=== PATIENT | male | born 2000 | race Caucasian/White ===

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

== ENCOUNTER 2022-02-04 23:08 | Day surgery (SDC) | payer MEDICAID, SELFPAY ==
[2022-02-04 23:12] VITALS: BP 145/84; PULSE 82; RESP 16; TEMP 36.8; O2SAT 98; BMI 22.4
--- NOTE | 2022-02-05 00:07 | XRR_ITS ---
PROCEDURE INFORMATION: Exam: XR Abdomen Exam date and time: 02/05/2022 12:13 AM Age: 21 years old Clinical indication: Patient HX: Rectal foreign body TECHNIQUE: Imaging protocol: Radiologic exam of the abdomen. Views: Frontal supine view of the abdomen. 1 View. COMPARISON: CT abdomen pelvis w con* [id number] 10/31/2020 1:51 AM FINDINGS: Gastrointestinal tract: Nondilated bowel. Intraperitoneal space: Negative for free intraperitoneal air. Bones/joints: Unremarkable. Soft tissues: Suspect a cylindrical foreign body structure in the midline of the inferior pelvis unknown etiology otherwise. Other findings: Large fecal volume. XR/XR KUB [id number] IMPRESSION: Vague cylindrical radiopaque foreign body structure in profile with the distal rectum.
--- NOTE | 2022-02-05 00:32 | W.ED.SKABFB ---
HPI - Skin/Abscess/Foreign Bdy General: Chief complaint: Skin/Abscess/Foreign Body Stated complaint: FOB Time Seen by Provider: 02/05/22 00:15 History of Present Illness: Mr. Carter is a 21-year-old male without significant past medical history presents to the emergency department due to rectal foreign body. He reports, just prior to arrival, sitting down and sitting on a pen. He immediately had mild discomfort and knew that the pen had gone inside his rectum. Denies bleeding. Denies significant abdominal pain or tenderness. Overall symptom intensity is mild he does have a urge to have a bowel movement. No history of similar. No other specific changes in health, exacerbating, or alleviating factors identified. Onset (ago): minute(s) Location: buttocks Review of Systems General: Reports: 10 or more systems reviewed and unremarkable except in HPI and below PFSH ED PFSH: Medical History (Updated 02/18/22 @ 23:59 by Constantino Winslow MD) No significant past medical history Surgical History (Updated 02/18/22 @ 23:56 by Constantino Winslow MD) No significant past surgical history Family History Mother Recurrent partial dislocation of kneecap Social History Smoking and tobacco status: never smoked Alcohol intake: never 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 Physical Exam Const: COMMON NORMALS: alert GENERAL APPEARANCE: cooperative and well developed HENMT: COMMON NORMALS: normocephalic and atraumatic HEAD & SCALP: normocephalic and atraumatic Eye: COMMON NORMALS: conjunctivae normal CONJUNCTIVA: Yes conjunctivae normal SCLERA: sclerae normal Neck/C-Spine: COMMON NORMALS: supple GENERAL: Yes trachea midline Resp: COMMON NORMALS: normal respiratory effort EFFORT & INSPECTION: Yes able to speak in complete sentences Cardio: COMMON NORMALS: regular rate and regular rhythm RATE: regular rate RHYTHM: regular rhythm GI: COMMON NORMALS: Soft to palpation PALPATION: Yes Soft to palpation and No Tenderness to palpation present (GI) Extremity: GENERAL: Yes normal exam except as noted and No edema Neuro: COMMON NORMALS: moves all extremities SENSORIUM/ORIENTATION: Yes alert and No Orientation impaired Psych: COMMON NORMALS: mental status grossly normal and Normal thought process present THOUGHT PROCESS: Normal thought process present Course Vital Signs: Vital signs: Vital Signs Temperature 97.3 F L 02/05/22 06:54 Pulse Rate 61 02/05/22 07:00 Respiratory Rate 18 02/05/22 07:00 Blood Pressure 103/46 02/05/22 07:00 Pulse Oximetry 97 02/05/22 07:00 Oxygen Delivery Me thod 02/05/22 07:00 Oxygen Flow Rate 6 02/05/22 06:54 MDM - Skin/Abscess/Foreign Bdy Medicial Decision Making 21-year-old male presenting with rectal foreign body. He sat on a seat and pen went into anus. Abdominal exam is benign. X-ray consistent with reported history. Performed rectal exam with curing machine operator present and attempted extraction of pen however, while palpable, I was unable to remove the object. Discussed case with general surgery who plans to perform flexible sigmoidoscopy for foreign body removal. Satisfactory for GI Lab management. Medical Records I reviewed the patient's medical records. Lab Data I reviewed the patient's lab results. Radiology Impressions KUB X-Ray 02/05/22 06:21 IMPRESSION: 1. Bowel gas pattern is mildly distended but nonobstructive. 2. Moderate stool burden. 3. No free air. Chest X-Ray 02/05/22 06:39 IMPRESSION: 1. Low lung volumes are present, accentuating cardiac size and pulmonary markings. 2. No free air. 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
[2022-02-05] MEDS: lidocaine 2% Urojet 20 mL TOPICAL (00:41)
[2022-02-05] MEDS: sodium chloride 0.9% 1,000 ML 125 ML IV (02:05)
--- NOTE | 2022-02-05 05:17 | P.HP_ITS ---
Same Day Surgery H&P Indication for Procedure/HPI DATE OF PROCEDURE: February 05, 2022 CHIEF COMPLAINT/INDICATIONFOR SURGICAL PROCEDURE: Foreign body in the rectum PREOP DIAGNOSIS: Foreign body in the rectum PLANNED PROCEDURE: Flex sigmoidoscopy and possible removal of foreign body This is a 21 years old gentleman otherwise healthy presents to the emergency department with history that he did sit on a pen and never happened before and few attempts were done by the ED team in trying to extract the pen without obvious success, a KUB was obtained and did show Gastrointestinal tract: Nondilated bowel. Intraperitoneal space: Negative for free intraperitoneal air. Bones/joints: Unremarkable. Soft tissues: Suspect a cylindrical foreign body structure in the midline of the inferior pelvis unknown etiology otherwise. Other findings: Large fecal volume. XR/XR KUB [id number] IMPRESSION: Vague cylindrical radiopaque foreign body structure in profile with the distal rectum. ? General surgery was consulted for potential explantation of the foreign body, patient denies any bleeding per rectum or previous anorectal surgeries ROS All systems have been reviewed negative except as for the above or per problem list. Medications/Allergies* Allergies/Adverse Reactions Allergy/AdvReac Type Severity Reaction Status Date / Time milk Allergy ADR-Gastrointestinal Verified 02/05/22 05:22 Upset Current Medications: Generic Name Dose Route Start Last Admin Trade Name Freq PRN Reason Stop Dose Admin Sodium Chloride 1,000 mls @ 125 mls/hr 02/05/22 01:30 02/05/22 02:05 Sodium Chloride 0.9% IV 125 mls/hr .Q8H GREG Administration Pertinent History/Comorbid Conditions* Family History (Updated 07/14/19 @ 16:25 by Jennifer Buck DO) Recurrent partial dislocation of kneecap Mother Social History Smoking and tobacco status: never smoked Alcohol intake: never 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 Pertinent Exam Findings alert, oriented x 3, clear to auscultation bilaterally, regular rate & rhythm and procedure specific exam findings (Abdominal examination nontender nond istended soft) Recommendations Surgery/Procedure today (Flex sigmoidoscopy with possible foreign body removal) Other Plans: Plan of care; After thorough history and physical examination and reviewing the chart, plan to perform flex sigmoidoscopy with possible foreign body removal. I discussed with the patient in details the risks,benefits,alternatives and indications.The risk of aspiration, bleeding, soft tissue injury, perforation of the colon and other potential concomitant complications were explained to the patient in details,also the potential need for Laproscoy/Laparotomy to repair any related complications including but not limited to colectomy and or Closotomy.The patient understood this well and did agree to proceed. Rationale was carefully and clearly discussed with the patient.Appropriate informed consent have been reviewed and signed All questions have been answered and all concerns have been addressed to lilly ent's satisfaction. 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
[2022-02-05 05:20] VITALS: BP 116/58; PULSE 77; RESP 16; O2SAT 94
--- NOTE | 2022-02-05 05:45 | ANES.PREANE2 ---
Pre-Anesthetic Assessment Height/Weight: Height 1.88 m Weight 79.379 kg Temp Pulse Resp BP Pulse Ox O2 Del Method 98.2 F 77 16 116/58 94 02/04/22 23:12 02/05/22 05:20 02/05/22 05:20 02/05/22 05:20 02/05/22 05:20 02/05/22 05:20 Preop Diagnosis: Foreign body in the rectum Familial anesthetic complications: None Was Beta Tomas taken within 24 hours: N/A Was Clonidine taken within 24 hours: N/A Social No alcohol and No tobacco Exam alert, oriented x 3, clear to auscultation bilaterally and regular rate & rhythm Airway Submandibular: within normal limits Cervical ROM: within normal limits Mallampati: Class I Dentition: full History/ROS No significant complaints Pulmonary None reported CV/HEM None reported None reported Hepatic None reported GI Pen in GI tract (lower) Metabolic None reported Musc/skel None reported Neuropsych None reported Anesthetic Plan ASA status: 1 Anesthesia: Anesthesia Evaluation and General Other: I discussed with the patient risks, goals, and benefits of MAC and general anesthesia. We discussed spectrum of MAC anesthesia including conversion to general as well as possibility of recall of intraoperative stimuli including discomfort/pain. Patient agrees to proceed with MAC. Risk of > 500 ml blood loss (7ml/kg in children): No Medications/Allergies Allergies Allergy/AdvReac Type Severity Reaction Status Date / Time milk Allergy ADR-Gastrointestinal Verified 02/05/22 05:22 Upset Current Medications Generic Name Dose Route Start Last Admin Trade Name Freq PRN Reason Stop Dose Admin Sodium Chloride 1,000 mls @ 125 mls/hr 02/05/22 01:30 02/05/22 02:05 Sodium Chloride 0.9% IV 125 mls/hr .Q8H GREG Administration PFSH Anesthesia Family History Mother Recurrent partial dislocation of kneecap Social History Smoking and tobacco status: never smoked Alcohol intake: never 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 Data Anesthesia Cardiac Studies: No Data to Display
[2022-02-05] MEDS: sodium chloride 0.9% 1,000 ML 30 ML IV (06:10)
--- NOTE | 2022-02-05 06:21 | XRR_ITS ---
PROCEDURE INFORMATION: Exam: XR Abdomen Exam date and time: 02/05/2022 6:24 AM Age: 21 years old Clinical indication: Injury or trauma; Other: Foreign body removal; Blunt; Lower; Injury date: ; Injury details: PT had a ink pin removed from rectum this am; Additional info: Possible rectum foreign body, possible ink pen TECHNIQUE: Imaging protocol: Radiologic exam of the abdomen. Views: Frontal supine view of the abdomen. 1 View. Total images: 1 COMPARISON: CR (ABDOMEN, ) 02/05/2022 12:13 AM FINDINGS: Gastrointestinal tract: Bowel gas pattern is mildly distended but nonobstructive. Intraperitoneal space: No free air. Bones/joints: Unremarkable. Other findings: Moderate stool burden. XR/XR KUB portable [id number] IMPRESSION: 1. Bowel gas pattern is mildly distended but nonobstructive. 2. Moderate stool burden. 3. No free air.
--- NOTE | 2022-02-05 06:39 | XRR_ITS ---
PROCEDURE INFORMATION: Exam: XR Chest Exam date and time: 02/05/2022 6:38 AM Age: 21 years old Clinical indication: Injury or trauma; Other: Foreign body remomved; Blunt trauma (contusions or hematomas); Injury date: Today; Injury details: PT had a ink pink removed from rectum this am, looking for free air; Additional info: Post foreign body removal TECHNIQUE: Imaging protocol: Radiologic exam of the chest. Views: 1 view. Total images: 474 COMPARISON: CR XR ribs LT mn 3V w CXR1V [id number] 10/16/2021 7:37 PM FINDINGS: Lungs: See Heart/Mediastinum finding. Pleural spaces: Unremarkable. No pleural effusion. No pneumothorax. Heart/Mediastinum: Low lung volumes are present, accentuating cardiac size and pulmonary markings. Bones/joints: Unremarkable. XR/XR chest 1V portable [id number] IMPRESSION: 1. Low lung volumes are present, accentuating cardiac size and pulmonary markings. 2. No free air.
--- NOTE | 2022-02-05 06:48 | ANE.PACU2 ---
Inpatient post-anesthesia follow up: Vital signs: Temperature 98.2 F Pulse Rate 77 Respiratory Rate 16 Blood Pressure 116/58 Pulse Oximetry 94 Oxygen Delivery Me thod Room Air Oxygen Flow Rate Fraction of Inspir ed Oxygen
[2022-02-05 06:54] VITALS: BP 101/43; PULSE 61; RESP 22; TEMP 36.3; O2SAT 99
[2022-02-05 07:00] VITALS: BP 103/46; PULSE 61; RESP 18; O2SAT 97
--- NOTE | 2022-02-05 07:55 | ANE.PACU2 ---
Inpatient post-anesthesia follow up: Airway intact: Yes Vital signs: Temperature 97.3 F Pulse Rate 61 Respiratory Rate 18 Blood Pressure 103/46 Pulse Oximetry 97 Oxygen Delivery Me thod Room Air Oxygen Flow Rate 6 Fraction of Inspir ed Oxygen Hydration adequate: Yes Nausea and vomiting: No Pain level: 1 Mental status: Baseline
== END 2022-02-05 07:21 | disposition home or self-care (01) ==
LOC: ER 02-05 00:32 → GILAB 02-05 05:40
PROVIDERS: Emergency Provider Emergency Medicine; Visit Provider Surgery
DX: T18.5XXA Foreign body in anus and rectum, initial encounter (principal); K56.41 Fecal impaction
CPT/HCPCS: 45332; 71045; 74018; 88300; J2704; J3010; J7030

== ENCOUNTER 2022-03-27 16:26 | Outpatient (CLI) | payer MEDICAID, SELFPAY ==
--- NOTE | 2022-03-27 17:06 | XR_ITS ---
WS: [id number] Exam: XR foot LT min 3V* [id number] Date/Time of Exam: 03/27/2022 5:12 PM Reason For Exam: FOOT JOINT PAIN, LEFT Findings: The foot was examined in multiple views and reveals no fractures or displacements of bone. No bony a nomalies are noted. The bony elements are in adequate alignment. The joint spaces are smooth and eq uidistant. XR/XR foot LT min 3V* [id number] IMPRESSION: Negative left foot.
== END 2022-03-27 16:27 | disposition home or self-care (01) ==
LOC: RAD 16:29
PROVIDERS: PCP Nurse Practitioner Family; Visit Provider Nurse Practitioner Family
DX: M79.672 Pain in left foot (principal)
CPT/HCPCS: 73630

== ENCOUNTER 2023-02-14 18:49 | Outpatient (CLI) | payer MEDICAID, SELFPAY ==
--- NOTE | 2023-02-14 18:59 | XRR_ITS ---
PROCEDURE INFORMATION: Exam: XR Right Hand Exam date and time: 02/14/2023 7:06 PM Age: 22 years old Clinical indication: Injury or trauma; Other: N/a; Additional info: Right hand injury TECHNIQUE: Imaging protocol: Radiologic exam of the right hand. Views: 3 or more views. COMPARISON: No relevant prior studies available. FINDINGS: Bones/joints: No acute fracture or dislocation is noted. The skeletal structures seem age-appropriate. Soft tissues: Unremarkable. XR/XR hand RT min 3V* [id number] IMPRESSION: No acute findings.
== END 2023-02-14 18:50 | disposition home or self-care (01) ==
LOC: RAD 18:52
PROVIDERS: PCP Nurse Practitioner Family; Visit Provider Registered Nurse Neonatal Intensive Care
DX: S69.91XA Unspecified injury of right wrist, hand and finger(s), initial encounter (principal); X58.XXXA Exposure to other specified factors, initial encounter
CPT/HCPCS: 73130

== ENCOUNTER 2023-02-16 21:46 | Emergency (ER) | payer MEDICAID, SELFPAY ==
[2023-02-16 21:50] VITALS: BP 129/79; PULSE 84; RESP 18; TEMP 36.8; O2SAT 97; BMI 22.1
--- NOTE | 2023-02-16 21:59 | XRR_ITS ---
PROCEDURE INFORMATION: Exam: XR Left Hip Exam date and time: 02/16/2023 10:21 PM Age: 22 years old Clinical indication: Hip pain; Left hip; Additional info: Hip pain no trauma TECHNIQUE: Imaging protocol: Radiologic exam of the left hip. Views: 2 or 3 views hip with pelvis when performed. COMPARISON: CT abdomen pelvis w con* [id number] 10/31/2020 1:51 AM FINDINGS: Bones/joints: Unremarkable. No acute fracture. Soft tissues: Unremarkable. XR/XR hip LT 2-3V wo/w pel* [id number] IMPRESSION: No acute findings.
--- NOTE | 2023-02-16 22:42 | ED_ITS ---
HPI - Extremity Problem General: Chief complaint: Extremity Problem,Nontraumatic Stated complaint: hip pain Time Seen by Provider: 02/16/23 22:34 History of Present Illness: 22-year-old male patient states he was walking about 30 minutes prior to arrival to the ER and felt a sudden onset of pain in his left hip. Mother brought patient in due to 2 to 3 years ago he had a similar incident and it was found that he had an entrapped ligament or tendon and had to have some physical th erapy. Patient at this time appears nontoxic. Patient appears in no pain at rest. Review of Systems General: Reports: 10 or more systems reviewed and unremarkable except in HPI and below Musc: Reports: joint pain (Left hip) [facility] ED PFSH: Medical History (Updated 02/16/23 @ 22:47 by REJI Quiros) No significant past medical history Surgical History (Updated 02/18/22 @ 23:56 by Constantino Winslow MD) No significant past surgical history Family History Mother Recurrent partial dislocation of kneecap Social History Smoking and tobacco status: never smoked Alcohol intake: never Substance/Drug Use: never 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 Physical Exam Const: COMMON NORMALS: alert HENMT: COMMON NORMALS: normocephalic HEAD & SCALP: normocephalic Neck/C-Spine: COMMON NORMALS: full ROM Resp: COMMON NORMALS: normal respiratory effort Cardio: COMMON NORMALS: regular rate RATE: regular rate Back/Pelvis: COMMON NORMALS: thoracic and lumbar spine normal to inspection Extremity: LEFT LOWER EXTREMITY: Yes hip joint (Lateral hip tenderness, normal range of motion) Neuro: SENSORIUM/ORIENTATION: Yes alert Skin: COMMON NORMALS: turgor normal GENERAL SKIN EXAM: turgor normal Course Vital Signs: Vital signs: Vital Signs Temperature 98.2 F 02/16/23 21:50 Pulse Rate 84 02/16/23 21:50 Respiratory Rate 18 02/16/23 21:50 Blood Pressure 129/79 02/16/23 21:50 Pulse Oximetry 97 02/16/23 21:50 Oxygen Delivery Me thod Room Air 02/16/23 21:50 MDM - Extremity (Nontraumatic) Medical Decision Making Patient comes in with new onset of left hip pain. On exam patient has tenderness on the lateral aspect of the hip, normal range of motion, distal pulses and sensation are intact. Vital signs are normal. No inguinal tenderness. Differential diagnosis includes not limited to tendinitis, bursitis, avascular necrosis, drainage, contusion. No signs of serious injury is noted. Patient is stable and will be released to home. Due to patient's history of prior entrapment syndrome we will go ahead and follow-up with orthopedics for further evaluation. Family was agreeable to plan. Lab Data Radiology Impressions Hip/Pelvis X-Ray 02/16/23 21:59 IMPRESSION: No acute findings. Discharge Plan Discharge Patient Disposition: Home Clinical Impression: Left hip pain Condition: Stable Prescriptions: No Action No Known Home Medications Discharge Orders: Discharge ED (Routine); Ordered 02/16/23 Ordered By: Jose M Mchugh Referrals: Crystal Recio FNP [Primary Care Provider] - Discharge Diet: Usual diet Discharge Activity: Increase activity as tolerated Patient Instructions: Hip Pain (ED) Activity Restrictions/Additional Instructions: Maintain light activity. Avoid strenuous exercise. Use acetaminophen and ibuprofen for pain. Follow-up with primary care for further instructions. Return to ED for new concerns. 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
--- NOTE | 2023-02-17 08:45 | DCPLANNER ---
Addendum entered by Arely Ovalles 02/25/23 12:52: Patient had a follow up appointment scheduled for 02.25.23 - patient did attend appointment Addendum entered by Arely Ovalles 02/17/23 14:35: manager developmental received the following message from the ortho clinic regarding follow up appointment: attempt made to contact patient - left vm on numbers listed in chart - can get in tomorrow w/ dr james if he calls back otherwise next week Original Note: manager developmental had message to schedule a follow up appointment for patient with ortho. manager developmental sent patients information to the front office staff at ortho. Patients information will be printed and reviewed. Clinic will call patient with appointment information.
== END 2023-02-16 23:04 | disposition home or self-care (01) ==
PROVIDERS: Emergency Provider Nurse Practitioner Family; PCP Nurse Practitioner Family
DX: M25.552 Pain in left hip (principal)
CPT/HCPCS: 73502; 99283

== ENCOUNTER → 2023-02-25 11:56 | Outpatient (BNVA) | payer MEDICAID, SELFPAY | PROVIDERS: PCP Nurse Practitioner Family; Visit Provider Specialist | DX: M25.552 Pain in left hip (principal); M24.852 Other specific joint derangements of left hip, not elsewhere classified | CPT/HCPCS: 72170 ==

== ENCOUNTER 2023-04-15 13:24 | Outpatient (RCR) | payer MEDICAID, SELFPAY | END 2023-04-28 23:59 | disposition home or self-care (01) | LOC: SPT 13:24 | PROVIDERS: PCP Nurse Practitioner Family; Visit Provider Physician Assistant | DX: M25.552 Pain in left hip (principal) | CPT/HCPCS: 97110; 97161 ==

== ENCOUNTER 2023-04-29 06:00 | Outpatient (RCR) | payer MEDICAID, SELFPAY | END 2023-05-26 14:15 | disposition home or self-care (01) | LOC: SPT 06:00 | PROVIDERS: PCP Nurse Practitioner Family; Visit Provider Physician Assistant | DX: M25.552 Pain in left hip (principal) | CPT/HCPCS: 97110 ==

== ENCOUNTER 2023-08-19 13:52 | Emergency (ER) | payer MEDICAID, SELFPAY ==
[2023-08-19 13:55] VITALS: BP 120/75; PULSE 70; RESP 15; TEMP 36.6; O2SAT 98
--- NOTE | 2023-08-19 14:01 | XR_ITS ---
WS: [id number] Examination: XR foot RT min 3V* [id number] Reason for Exam: injury pain Date: August 19, 2023 Comparison: April 17, 2021 Findings: There is no soft tissue swelling The bone density is maintained. The joint spaces are maintained. There is no fracture. There is no dislocation. IMPRESSION: No acute bony abnormality is identified.
--- NOTE | 2023-08-19 14:01 | XR_ITS ---
WS: [id number] Examination: XR ankle RT min 3V* [id number] Reason for Exam: injury, pain Date: August 19, 2023 Comparison: April 17, 2021 Findings: There is no significant soft tissue swelling The bone density and ankle mortise are intact. There is no fracture. There is no dislocation. Impression: No displaced fractures identified.
--- NOTE | 2023-08-19 14:01 | W.ED.EXTPRO ---
HPI - Extremity Problem General: Chief complaint: Extremity Injury, Lower Stated complaint: Right ankle pain Time Seen by Provider: 08/19/23 13:59 History of Present Illness: 22-year-old male patient comes in today with injury to the right foot/ankle. Patient appears nontoxic. Patient appears in no acute distress. Patient reports he was going up the stairs when he slipped causing him to twist his right foot and ankle. Patient reports pain and discomfort to the lateral. Pulses are intact. Patient had recently had surgery for a labral tear on his left hip. 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 Physical Exam Const: COMMON NORMALS: alert HENMT: COMMON NORMALS: normocephalic HEAD & SCALP: normocephalic Neck/C-Spine: COMMON NORMALS: full ROM Resp: COMMON NORMALS: normal respiratory effort and clear to auscultation bilaterally AUSCULTATION: clear to auscultation bilaterally Cardio: COMMON NORMALS: regular rate and regular rhythm RATE: regular rate RHYTHM: regular rhythm GI: COMMON NORMALS: non-tender Back/Pelvis: COMMON NORMALS: thoracic and lumbar spine normal to inspection Extremity: RIGHT LOWER EXTREMITY: Yes foot & digits (Lateral foot pain.) Right foot and digits: Yes inspection, Yes palpation and Yes ROM Neuro: SENSORIUM/ORIENTATION: Yes alert Skin: COMMON NORMALS: turgor normal GENERAL SKIN EXAM: turgor normal Course Vital Signs: Vital signs: Vital Signs Temperature 97.8 F 08/19/23 13:55 Pulse Rate 70 08/19/23 13:55 Respiratory Rate 15 08/19/23 13:55 Blood Pressure 120/75 08/19/23 13:55 Pulse Oximetry 98 08/19/23 13:55 Oxygen Delivery Me thod Room Air 08/19/23 13:55 MDM - Extremity (Nontraumatic) Medical Decision Making 22-year-old male patient comes in today for complaints of injury to the right foot. On exam patient appears nontoxic. Patient appears in no acute distress. Patient has mild tenderness to the lateral foot along the fifth metatarsal base. Pulses are intact. No significant swelling or bruising is noted. Differential diagnosis includes sprain, fracture, dislocation. X-rays no acute fractures. Reviewed exam with patient and family with recommendations for treatment and follow-up. Family reported understanding agreed to plan. All radiology interpretation(s) finalized by discharge Discharge Plan Discharge Patient Disposition: Home Clinical Impression: Ankle sprain Qualifiers: Encounter type: initial encounter Involved ligament of ankle: unspecified ligament Laterality: right Qualified Code(s): S93.401A - Sprain of unspecified ligament of right ankle, initial encounter Condition: Stable Prescriptions: No Action No Known Home Medications Discharge Orders: Discharge ED (Routine); Ordered 08/19/23 Ordered By: Jose M Mchugh Other Ambulatory Orders: DME: Miscellaneous (Order) Location: None Selected Ordered By: Jose M Mchugh Referrals: Crystal Recio FNP [Primary Care Provider] - Discharge Diet: Usual diet Discharge Activity: Increase activity as tolerated Patient Instructions: Ankle Sprain (ED) Activity Restrictions/Additional Instructions: Follow-up with primary care or process control specialist for recheck in 1 to 2 weeks. Wear walking boot for support. Return to ER for new concerns. 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
== END 2023-08-19 15:05 | disposition home or self-care (01) ==
PROVIDERS: Emergency Provider Nurse Practitioner Family; PCP Nurse Practitioner Family
DX: S93.401A Sprain of unspecified ligament of right ankle, initial encounter (principal); X50.1XXA Overexertion from prolonged static or awkward postures, initial encounter
CPT/HCPCS: 73610; 73630; 99283

== ENCOUNTER 2023-11-06 09:06 | Outpatient (CLI) | payer MEDICAID, SELFPAY ==
--- NOTE | 2023-11-06 09:13 | XR_ITS ---
WS: [id number] Left hip, AP and frog-leg views, 11/06/2023 Clinical Data: fall 7 days ago Comparison: Pelvis, 02/25/2023 Findings: No fractures or dislocations are seen. The hip joint is intact. The soft tissues are not remarkable. The adjacent pelvis is normal. XR/XR hip LT 2-3V wo/w pel* [id number] Impression: Negative left hip. Tonnis classification: grade 0: normal radiographs
== END 2023-11-06 09:07 | disposition home or self-care (01) ==
LOC: RAD 09:07
PROVIDERS: PCP Nurse Practitioner Family; Visit Provider Nurse Practitioner Family
DX: M25.552 Pain in left hip (principal)
CPT/HCPCS: 73502

== ENCOUNTER 2023-12-02 14:33 | Outpatient (CLI) | payer MEDICAID, SELFPAY ==
--- NOTE | 2023-12-02 14:41 | XR_ITS ---
WS: [id number] XR hip RT 2-3V wo/w pel* [id number] REASON FOR EXAM: right hip pain FINDINGS: No fracture or focal bone lesion. The joint space is intact and well maintained. No soft tissue abnormality. XR/XR hip RT 2-3V wo/w pel* [id number] IMPRESSION: No significant arthropathy or other abnormality of the right hip.
== END 2023-12-02 14:34 | disposition home or self-care (01) ==
LOC: RAD 14:34
PROVIDERS: PCP Nurse Practitioner Family; Visit Provider Nurse Practitioner
DX: M25.551 Pain in right hip (principal)
CPT/HCPCS: 73502

== ENCOUNTER 2023-12-23 22:48 | Emergency (ER) | payer MEDICAID, SELFPAY ==
[2023-12-23 22:56] VITALS: BP 131/80; PULSE 59; RESP 16; TEMP 36.5; O2SAT 98
--- NOTE | 2023-12-24 00:57 | ED_ITS ---
HPI - Extremity Problem General: Chief complaint: Extremity Injury, Upper Stated complaint: right shoulder injury Time Seen by Provider: 12/24/23 00:44 History of Present Illness: Patient presents to the ER with complaints of right shoulder pain. Patient said this pains been going on for 12 weeks he has seen multiple doctors for work even had an [place] I has been going to physical therapy and it has been helping. But tonight he was sitting on his couch and felt a pop out of nowhere and has had intense pain ever since. Patient has been taking his Tylenol and meloxicam for it but it has not seem to be helping. Patient says worse with movements. Review of Systems General: Reports: 10 or more systems reviewed and unremarkable except in HPI and below PFSH ED PFSH: Medical History Rectal foreign body Left hip pain Surgical History Status post hip surgery left Jun 2023 labral tear repair No significant past surgical history Family History Mother Recurrent partial dislocation of kneecap Social History Smoking and tobacco/nicotine status: never used tobacco/nicotine Alcohol intake: never Substance/Drug Use: never 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 Physical Exam Const: COMMON NORMALS: no acute distress, average body habitus, patient oriented x3, no limitations, healthy appearing, alert and well nourished Neck/C-Spine: COMMON NORMALS: no JVD Chest: COMMONS NORMALS: normal inspection of the chest and normal palpation of entire chest wall Resp: COMMON NORMALS: normal respiratory effort, No retractions, No use of accessory muscles and clear to auscultation bilaterally AUSCULTATION: clear to auscultation bilaterally Cardio: COMMON NORMALS: no JVD, regular rate, regular rhythm, S1 normal heart sound present, S2 normal heart sound present, No gallops present (Cardio), No clicks present (Cardio), No murmurs present (Cardio) and No rub (Cardio) RAT E: regular rate RHYTHM: regular rhythm HEART SOUNDS: S1 normal heart sound present and S2 normal heart sound present GI: COMMON NORMALS: Normal to inspection, nondistended, normoactive bowel sounds present, Soft to palpation, non-tender, No hepatosplenomegaly present and no masses PALPATION: Yes Soft to palpation and Yes No hepatosplenomegaly present Extremity: NARRATIVE EXTREMITY EXAM: Tenderness with palpation over right anterior shoulder joint area. Limited range of motion secondary to pain. No obvious crepitus or deformity Neuro: COMMON NORMALS: patient oriented x3 SENSORIUM/ORIENTATION: Yes alert Course Vital Signs: Vital signs: Vital Signs Temperature 97.7 F 12/23/23 22:56 Pulse Rate 59 L 12/23/23 22:56 Respiratory Rate 16 12/23/23 22:56 Blood Pressure 131/80 12/23/23 22:56 Pulse Oximetry 98 12/23/23 22:56 Oxygen Delivery Me thod Room Air 12/23/23 22:56 MDM - Extremity (Nontraumatic) Medical Decision Making Patient will be given 2 tramadol, 1 to take here 1 to go home with. Patient will be given a small prescription of tramadol to be sent to the pharmacy. Patient should follow-up with his PCP for further evaluation treatment. Differential Diagnosis Unlikely herpes zoster, gout, cellulitis, superficial thrombophlebitis, deep venous thrombosis of upper extremity, lower extremity edema or deep vein thrombosis of lower extremity Medical Records I reviewed the patient's medical records. Lab Data I reviewed the patient's lab results. No radiology studies performed this visit Discharge Plan Discharge Patient Disposition: Home Clinical Impression: Acute pain of right shoulder Condition: Stable Prescriptions: New ondansetron HCl 4 mg tablet 4 mg PO Q8H PRN (Reason: nausea and vomiting) Qty: 14 0RF tramadol 50 mg tablet 50 mg PO Q8H PRN (Reason: pain) Qty: 14 0RF No Action naproxen 500 mg tablet,delayed release (DR/EC) 500 mg PO BID PRN (Reason: pain) Qty: 20 0RF Discharge Orders: Discharge ED (Routine); Ordered 12/24/23 Ordered By: Zechariah Yepez Referrals: Crystal Recio FNP [Primary Care Provider] - 1 week Patient Instructions: Shoulder Pain (ED), Opioid Safety, Pain Management Activity Restrictions/Additional Instructions: Please take all medicine as prescribed. Please continue your exercises. Please follow-up with your family practice physician within the next 7 to 10 days for further evaluation and treatment. 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
[2023-12-24 01:01] VITALS: BP 132/79; PULSE 71; RESP 14; O2SAT 99
[2023-12-24] MEDS: TRAMadol 50 mg Tablet PO ×2 (01:21→01:22)
== END 2023-12-24 01:29 | disposition home or self-care (01) ==
PROVIDERS: Emergency Provider Emergency Medicine; PCP Nurse Practitioner Family
DX: M25.511 Pain in right shoulder (principal)
CPT/HCPCS: 99283

== ENCOUNTER 2024-11-16 20:43 | Emergency (ER) | payer MEDICAID, SELFPAY ==
[2024-11-16 20:46] VITALS: BP 129/88; PULSE 65; RESP 14; TEMP 36.5; O2SAT 98
--- NOTE | 2024-11-16 21:27 | XRR_ITS ---
PROCEDURE INFORMATION: Exam: XR Left Hand Exam date and time: 11/16/2024 9:36 PM Age: 24 years old Clinical indication: Pain; Hand; Left; Additional info: Pain, decreased rom TECHNIQUE: Imaging protocol: Radiologic exam of the left hand. Views: 3 or more views. COMPARISON: No relevant prior studies available. FINDINGS: Bones/joints: Normal. Soft tissues: Normal. XR/XR hand LT min 3V* [id number] IMPRESSION: No acute findings.
--- NOTE | 2024-11-16 21:28 | W.ED.EXTPRO ---
HPI - Extremity Problem General: Chief complaint: Extremity Injury, Upper Stated complaint: Left hand inj Time Seen by Provider: 11/16/24 21:17 Source: patient Mode of arrival: ambulatory Limitations: no limitations History of Present Illness: 24yo male presents with mother for evaluation of left hand injury. Patient does have a chronic injury where he does not feel pain or have any feeling in the left hand. States he injured his left hand yesterday and now has difficulty moving his little finger on the left hand. Patient reports the had a somewhat punching action down to the ground, but was not punching the ground. Patient is right-hand dominant. Denies any other concerns at this time. Associated symptoms: Deny fever(s) Related Data Allergies Allergy/AdvReac Type Severity Reaction Status Date / Time milk Allergy ADR-Gastrointestinal Verified 08/31/24 08:57 Upset Review of Systems Const: Denies: fever(s) or chills Musc: Reports: extremity pain (Left hand) and limited range of motion (Left little finger) [facility] ED PFSH: Medical History (Updated 11/16/24 @ 22:31 by REJI Law) Metacarpophalangeal joint pain of left hand Rectal foreign body Left hip pain Surgical History Status post hip surgery left Jun 2023 labral tear repair No significant past surgical history Family History Mother Recurrent partial dislocation of kneecap Social History Smoking and tobacco/nicotine status: never used tobacco/nicotine Alcohol intake: never Substance/Drug Use: never 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 Physical Exam Const: COMMON NORMALS: no acute distress, patient oriented x3 and alert GENERAL APPEARANCE: cooperative OTHER: Patient is ambulatory to the exam room unassisted. He is sitting upright on the stretcher no acute distress. He is able to give history with no difficulty. He is interactive with exam appropriately. Mother is at bedside HENMT: COMMON NORMALS: normocephalic and atraumatic HEAD & SCALP: normocephalic and atraumatic Neck/C-Spine: COMMON NORMALS: full ROM Chest: CHEST: Yes Symmetrical chest wall rise Resp: COMMON NORMALS: normal respiratory effort EFFORT & INSPECTION: Yes able to speak in complete sentences Extremity: LEFT UPPER EXTREMITY: Yes hand & digits Left hand and digits: Yes inspection (Faint ecchymosis along fifth metacarpal) and Yes ROM (Decreased flexion and extension of the left fifth digit) OTHER: Left radial pulse 2+, capillary refill less than 3 seconds Neuro: COMMON NORMALS: patient oriented x3 SENSORIUM/ORIENTATION: Yes alert Course Vital Signs: Vital signs: Vital Signs Temperature 97.7 F 11/16/24 20:46 Pulse Rate 72 11/16/24 21:49 Respiratory Rate 14 11/16/24 20:46 Blood Pressure 122/89 11/16/24 21:49 Pulse Oximetry 99 11/16/24 21:49 Oxygen Delivery Me thod Room Air 11/16/24 20:46 MDM - Extremity (Nontraumatic) Medical Decision Making 24yo male presents with mother for evaluation of left hand injury. Patient does have a chronic injury where he does not feel pain or have any feeling in the left hand. States he injured his left hand yesterday and now has difficulty moving his little finger on the left hand. Patient reports the had a somewhat punching action down to the ground, but was not punching the ground. Patient is right-hand dominant. Denies any other concerns at this time. Patient is nontoxic in appearance. Vital signs are stable. No fracture or acute bony abnormality noted on the x-ray. Discussed findings with patient and mother. Advised the injury is likely a contusion possibly sprain. Patient does have a splint at home he can use. Recommend range of motion exercises to encourage movement of the finger. Advised to follow-up with his orthopedist at his previously scheduled appointment next week. Return precautions provided. Patient and mother state understanding and have no further questions or concerns at this time. Lab Data Radiology Impressions Hand X-Ray 11/16/24 21:27 IMPRESSION: No acute findings. All radiology interpretation(s) finalized by discharge Discharge Plan Discharge Patient Disposition: Home Clinical Impression: Injury of hand, left Qualifiers: Encounter type: initial encounter Qualified Code(s): S69.92XA - Unspecified injury of left wrist, hand and finger(s), initial encounter Condition: Stable Prescriptions: Discontinued sulfamethoxazole-trimethoprim [Bactrim DS] 800-160 mg tablet 1 tab PO BID Qty: 14 0RF naproxen [Naprosyn] 500 mg tablet 500 mg PO BID Qty: 30 0RF Discharge Orders: Discharge ED (Routine); Ordered 11/16/24 Ordered By: Kevin Soliman Referrals: Crystal Recio FNP [Primary Care Provider, Family Practice] Patient Instructions: Hand Sprain (ED) Activity Restrictions/Additional Instructions: No fracture or acute bony abnormality noted on the x-ray today The injury may be a sprain or possibly contusion of the area Work on range of motion exercises of the finger to avoid stiffness Application of a cool compress and anti-inflammatories will help with the swelling as well Follow-up with your orthopedist at your previously scheduled appointment next week Return to the emergency department if any further injury, worsening symptoms, and as needed Print Language: Indonesian Coding Level of Care 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
[2024-11-16 21:49] VITALS: BP 122/89; PULSE 72; O2SAT 99
== END 2024-11-16 22:38 | disposition home or self-care (01) ==
PROVIDERS: Emergency Provider Nurse Practitioner; PCP Nurse Practitioner Family
DX: S69.92XA Unspecified injury of left wrist, hand and finger(s), initial encounter (principal); X58.XXXA Exposure to other specified factors, initial encounter
CPT/HCPCS: 73130; 99283

== ENCOUNTER 2024-12-13 20:44 | Emergency (ER) | payer MEDICAID, SELFPAY ==
--- NOTE | 2024-12-13 20:45 | XRR_ITS ---
PROCEDURE INFORMATION: Exam: XR Left Ankle Exam date and time: 12/13/2024 8:58 PM Age: 24 years old Clinical indication: Pain; Ankle; Left; Additional info: Injuyr TECHNIQUE: Imaging protocol: Radiologic exam of the left ankle. Views: 3 or more views. COMPARISON: CR XR foot LT min 3V* [id number] 03/27/2022 5:11 PM FINDINGS: Bones/joints: Normal. Soft tissues: Normal. XR/XR ankle LT min 3V* [id number] IMPRESSION: No acute findings.
[2024-12-13 20:48] VITALS: BP 146/86; PULSE 83; RESP 16; TEMP 36.4; O2SAT 96
--- NOTE | 2024-12-13 21:32 | XRR_ITS ---
PROCEDURE INFORMATION: Exam: XR Left Foot Exam date and time: 12/13/2024 9:41 PM Age: 24 years old Clinical indication: Pain; Foot; Left; Additional info: Injury TECHNIQUE: Imaging protocol: Radiologic exam of the left foot. Views: 3 or more views. COMPARISON: CR XR foot LT min 3V* [id number] 03/27/2022 5:11 PM FINDINGS: Bones/joints: No acute fracture or dislocation. Soft tissues: Soft tissues are unremarkable as visualized. XR/XR foot LT min 3V* [id number] IMPRESSION: No acute fracture or dislocation.
--- NOTE | 2024-12-13 23:09 | W.ED.EXTPRO ---
HPI - Extremity Problem General: Chief complaint: Extremity Injury, Lower Stated complaint: L ankle pain Time Seen by Provider: 12/13/24 22:49 Source: patient Mode of arrival: ambulatory Limitations: no limitations History of Present Illness: 24yo male presents with mother for evaluation of left ankle pain that started suddenly while he was walking. States that he was walking in a parking lot wearing his slides when his ankle started hurting. States that he did not twisted, strike it, or bump it. Patient reports that the pain is only to the outside bone. Denies any other concerns at this time. Associated symptoms: Deny fever(s) Related Data Allergies Allergy/AdvReac Type Severity Reaction Status Date / Time milk Allergy ADR-Gastrointestinal Verified 08/31/24 08:57 Upset Review of Systems Const: Denies: fever(s), chills or body aches Musc: Reports: joint pain (Left ankle) [facility] ED PFSH: Medical History (Updated 12/13/24 @ 23:12 by REJI Law) Metacarpophalangeal joint pain of left hand Rectal foreign body Left hip pain Surgical History Status post hip surgery left Jun 2023 labral tear repair No significant past surgical history Family History Mother Recurrent partial dislocation of kneecap Social History Smoking and tobacco/nicotine status: never used tobacco/nicotine Alcohol intake: never Substance/Drug Use: never 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 Physical Exam Const: COMMON NORMALS: no acute distress, patient oriented x3, healthy appearing and alert GENERAL APPEARANCE: cooperative ORIENTATION/CONSCIOUSNESS: Yes awake OTHER: Patient is sitting upright in a vertical flow recliner in no acute distress. He is able to give history with no difficulty. He is interactive with exam appropriately. Mother is at bedside HENMT: COMMON NORMALS: normocephalic and atraumatic HEAD & SCALP: normocephalic and atraumatic Chest: CHEST: Yes Symmetrical chest wall rise Resp: COMMON NORMALS: normal respiratory effort EFFORT & INSPECTION: Yes able to speak in complete sentences Extremity: LEFT LOWER EXTREMITY: Yes ankle joint Left ankle: Yes palpation (point ttp to lateral malleolus) Neuro: COMMON NORMALS: patient oriented x3 SENSORIUM/ORIENTATION: Yes alert Psych: COMMON NORMALS: cooperative Course Vital Signs: Vital signs: Vital Signs Temperature 97.6 F 12/13/24 20:48 Pulse Rate 83 12/13/24 20:48 Respiratory Rate 16 12/13/24 20:48 Blood Pressure 146/86 12/13/24 20:48 Pulse Oximetry 96 12/13/24 20:48 Oxygen Delivery Me thod Room Air 12/13/24 20:48 MDM - Extremity (Nontraumatic) Medical Decision Making 24yo male presents with mother for evaluation of left ankle pain that started suddenly while he was walking. States that he was walking in a parking lot wearing his slides when his ankle started hurting. States that he did not twisted, strike it, or bump it. Patient reports that the pain is only to the outside bone. Denies any other concerns at this time. Patient is nontoxic in appearance. Vital signs are stable. X-rays obtained while awaiting replacement. No fractures or acute bony abnormalities noted on the left ankle and left foot x-rays. Discussed findings with patient and mother. Advised rest, ice, elevation, and continue to monitor the ankle. Recommend follow-up with primary care within a week for recheck, sooner if needed. Return precautions provided. Patient states understanding and has no further questions or concerns at this time. Medical Records I reviewed the patient's medical records. Lab Data Radiology Impressions Ankle X-Ray 12/13/24 20:45 IMPRESSION: No acute findings. Foot X-Ray 12/13/24 21:32 IMPRESSION: No acute fracture or dislocation. All radiology interpretation(s) finalized by discharge Discharge Plan Discharge Patient Disposition: Home Clinical Impression: Acute left ankle pain Condition: Stable Discharge Orders: Discharge ED (Routine); Ordered 12/13/24 Ordered By: Kevin Soliman Discharge Diet: Usual diet Discharge Activity: Increase activity as tolerated Activity Restrictions/Additional Instructions: No fracture or acute bony abnormality noted on the x-ray today Continue to monitor your symptoms Apply a cool compress and elevate the ankle to help with discomfort Follow-up with primary care within a week for recheck, sooner if needed Return to the emergency department if any rapid worsening symptoms and as needed. Print Language: Vietnamese Coding Level of Care Code ED Touch Up [employer] for [employer]
== END 2024-12-13 23:16 | disposition home or self-care (01) ==
PROVIDERS: Emergency Provider Nurse Practitioner
DX: M25.572 Pain in left ankle and joints of left foot (principal)
CPT/HCPCS: 73610; 73630; 99283

== ENCOUNTER → 2025-01-04 14:56 | Outpatient (BNVA) | payer MEDICAID, SELFPAY | PROVIDERS: Visit Provider Podiatrist Foot & Ankle Surgery | DX: M25.572 Pain in left ankle and joints of left foot (principal); S93.402A Sprain of unspecified ligament of left ankle, initial encounter; X58.XXXA Exposure to other specified factors, initial encounter | CPT/HCPCS: 73610 ==

== ENCOUNTER 2025-02-10 11:29 | Outpatient (CLI) | payer MEDICAID, SELFPAY ==
--- NOTE | 2025-02-10 11:45 | MR_ITS ---
WS: [id number] MRI LEFT ANKLE WITHOUT CONTRAST. COMPARISON: 01/04/2025 radiograph Multiplanar, multisequence imaging is performed without contrast. No fracture or marrow edema. Low signal lesion measuring 6 mm along the medial talus does not extend to the articular surface and is most likely a bone island. No osteochondral defect. No significant joint effusion. The Achilles tendon is normal. Plantar aponeurosis is normal. Peroneal tendons are normal. Flexor hallucis longus, flexor digitorum longus and the posterior tibialis tendons are normal. Anterior tibialis tendon is normal. Extensor tendons are normal. Interosseous membrane is intact. Anterior talofibular and the posterior talofibular ligaments are intact with no adjacent edema. Anterior talofibular ligament and posterior talofibular ligaments are normal. There is motion artifact on several of the sequences but no convincing evidence for ligament abn ormality. Calcaneofibular ligament is normal. Deltoid ligament is normal. Seen best on the coronal T2 fat-sat sequence is a nodule of intermediate signal measuring 5.3 mm near the lateral talar dome. This may be an intraosseous body but a donor site is not evident. There is no significant joint effusion. MR/MR ankle LT wo con* [id number] IMPRESSION: 1. No fractures or marrow edema. 2. No osteochondral lesion identified. 3. No joint effusion. 4. Ligaments and tendons around the ankle are normal. 5. Indeterminate for 5.3 mm loose body in the lateral talar dome. No donor si te is evident.
== END 2025-02-10 11:30 | disposition home or self-care (01) ==
LOC: RAD 11:30
PROVIDERS: Visit Provider Podiatrist Foot & Ankle Surgery
DX: M25.572 Pain in left ankle and joints of left foot (principal)
CPT/HCPCS: 73721

== ENCOUNTER → 2025-02-21 15:18 | Outpatient (BNVA) | payer MEDICAID, SELFPAY | PROVIDERS: Visit Provider Podiatrist Foot & Ankle Surgery | DX: M95.8 Other specified acquired deformities of musculoskeletal system (principal) | CPT/HCPCS: 36415; 80053 ==

== ENCOUNTER → 2025-03-23 16:31 | Outpatient (BNVA) | payer MEDICAID, SELFPAY | PROVIDERS: Visit Provider Registered Nurse Neonatal Intensive Care | DX: J02.9 Acute pharyngitis, unspecified (principal) | CPT/HCPCS: 87880 ==

== ENCOUNTER 2025-03-25 20:37 | Emergency (ER) | payer MEDICAID, SELFPAY ==
--- OUTSIDE RECORDS SUMMARY | 2023-07-08 06:00 | XMS_ITS | Continuity of Care Document ---
Author Organization [facility] Address [id number] [address] Phone Care Team Providers Care Beveler Name Role Phone Jose M Clarke DDS Unavailable Unavailable Procedures Procedure Date Intraoral Periapical First Film Limited Oral Evaluation Problem Focused Extraction, Erupted Tooth Or Exposed Dionne t (Elevati Advance Directives Directive Yes / No Effective Date File Name No Information Encounters Encounter Description Practice Location Reason(s) For Visit Diagnoses Date Provider Providers Copied on Encounter [facility], [id number], [id number], tel:[phone] Encounter for dental exam and cleaning w/o abnormal findings Tricia Salguero. [address], [place], [id number], [place]. tel:[phone] Referring Provider: Jose M Steward, [address] [place], [address]. tel:[phone] Family History Family Member Type Diagnosis Age At Onset No Information Payers Payer name Insurance type Covered republican ID Authoriza tion(s) D [facility] [employer] CI [id number] Social History Type Description Quantity Date Captured Comments Sex Male Smoking Status No Information Sexual Orientation Heterosexual Gender Identity Male Chief Complaint And Reason For Visit No Information Reason For Referral Reason For Referral No Information History Of Present Illness Encounter Date Complaint History Of Prese nt Illness No Information Functional Status Date Functional Assessmen t No Information Instructions Date Instruction Additional Infor mation No Information Assessments Type Assessment Date No Information Patient Care Teams Name Effective Dates (start - stop) Status Members No Information
[2025-03-25 20:42] VITALS: BP 145/95; PULSE 85; RESP 16; TEMP 36.9; O2SAT 99
--- OUTSIDE RECORDS SUMMARY | 2025-03-25 20:42 | XMS_ITS | Encounter Summary ---
Author Organization [facility] Address [address] [place] [address] Care Team Providers Care Combination Machine Tool Setter Name Role Phone Shaq Marie MD Primary Care Provider + Encounter Details Date Type Department Care Team (Latest Contact Info) Description 03/15/2025 Results Follow-Up [facility] [address] [place] [address] Allison Brennan PA [address] [place] [address] MRI ARTHROGRAM SHOULDER RIGHT Social History Tobacco Use Types Packs/Day Years Used Date Smoking Tobacco: Never Smokeless Tobacco: Never Alcohol Use Standard Drinks/Week Comments No 0 (1 standard drink = 0.6 oz pur e alcohol) Feeling Safe Answer Date Recorded Are you in a relationship wi th someone who hurts you emotionally and/or physically? 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 [address] [place] [address] Sumeet Hurtado MD [address] [place] [address] Vaughn England MD [address] [place] [address] 03/31/2025 9:40 AM CDT Office Visit [facility] Orthopedics - Orthopedic [facility] [address] [place] [address] Allison Brennan PA [address] [place] [address] documented as of this encounter Visit Diagnoses Not on filedocumented in this encounter Care Teams Combination Machine Tool Setter Relationship Specialty Start Date End Date Shaq Marie MD [address] [place] [phone] PCP - General Pediatrics 01/29/21 documented as of this encounter
--- OUTSIDE RECORDS SUMMARY | 2025-03-25 20:42 | XMS_ITS | Clinical Summary ---
Author Organization [facility] Address [address] [facility] [address] Care Team Providers Care Medical Logistics Specialist Name Role Phone Shaq Marie MD Primary Care Provider + Allergies Active Allergy Reactions Criticality Noted Date Comments Milk Constipation Low 12/06/2018 Medications albuterol sulfate HFA 90 mcg/actuation aerosol inhalerIndication s:Mild intermittent asthma with exacerbation Take 2 Puffs by inhalation every 4 hours as needed for Shortness of Breath. 6.7 Gram 3 Active Additional Information Patient not taking.Reported on 01/25/2025 Cholecalciferol, Vitamin D3, 50 mcg (2,000 unit) Capsule Take 50 mcg by mouth daily. Active ascorbic acid, vitamin C, (VITAMIN C) 500 mg tablet Take 500 mg by mouth daily. Active sodium chloride (OCEAN) 0.65 % Aerosol, [place] Administer in each nostril PRN for Allergies. Active acetaminophen (TYLENOL) 500 mg tablet Take 1,000 mg by mouth every 8 hours as needed. Active cyclobenzaprine (FLEXERIL) 5 mg TabletIndications :Status post hip surgery Take 1 Tablet (5 mg) by mouth 1 time daily as needed for Spasm or Discomfort. 30 Tablet 5 Active Additional Information Patient not taking.Reported on 01/25/2025 gabapentin (NEURONTIN) 300 mg capsuleIndication s:Cervical radiculopathy Take 1 Capsule (300 mg) by mouth daily at bedtime. 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): better Encounters Date Type Department Care Team Description 03/15/2025 Results Follow-Up [facility] Orthoped[facility] - Orthopedic [facility] [address] [place] [address] Allison Brennan PA MRI ARTHROGRAM SHOULDER RIGHT 03/14/2025 External Device Data STL ABSTRACTION Provider, Abstract 03/10/2025 7:35 AM CDT - 03/10/2025 11:59 PM CDT Hospital Encounter [facility] [address] [place] [address] Allison Brennan PA Discharge Disposition: Home or Self Care 03/10/2025 7:33 AM CDT - 03/10/2025 11:59 PM CDT Hospital Encounter [facility] MRI [address] [place] [address] Allison Brennan PA Discharge Disposition: Home or Self Care 03/10/2025 7:30 AM CDT - 03/10/2025 11:59 PM CDT Hospital Encounter [facility] [address] [place] [phone] Allison Brennan PA Crawford, Tiffany L, FNP Discharge Disposition: Home or Self Care 02/28/2025 External Device Data STL ABSTRACTION Provider, Abstract 02/15/2025 External Device Data STL ABSTRACTION Provider, Abstract 02/14/2025 External Device Data STL ABSTRACTION Provider, Abstract 02/14/2025 External Device Data STL ABSTRACTION Provider, Abstract 01/25/2025 1:40 PM CDT Office Visit [facility] [address] [phone] Allison Brennan PA Chronic right shoulder pain (Primary Dx) 01/16/2025 12:20 PM CDT Office Visit [facility] [address] [place] [phone] Sumeet Hurtado MD Cervical radiculopathy (Primary Dx); Other chronic pain; Axial spondyloarthritis 01/10/2025 2:20 PM CDT Telephone Check Up [facility] [address] [phone] Allison Brennan PA Status post hip surgery (Primary Dx) 12/27/2024 External Device Data STL ABSTRACTION Provider, Abstract 12/27/2024 External Device Data STL ABSTRACTION Provider, Abstract from Last 3 Months Immunizations Immunization Administration Dates Next Due (BEXSERO)(10-25 YR) MENINGOC OCCAL RECOMBIANT PROTEIN AND OUTER MEMBRANE VESICLE VACCINE, SEROGROUP B MENB-4C, 2 DOSE IM 01/31/2021 (HAVRIX/VAQTA)(12 MO-18 YRS) HEPATITIS A VACCINE 0.5 ML PED/ADOL 2 DOSE, IM 02/18/2010,11/04/2007 (IPOL)(6 WKS AND UP) POLIOVI ANITHA VACCINE, INACTIVATED (IPV), 3 DOSE, SUBCUT OR IM 11/04/2007 (M-M-R II/PRIORIX)(12 MO UP) MEASLES, MUMPS AND RUBELLA VIRUS VACCINE, 0.5 ML IM/SUBCUT 11/04/2007,10/02/2003 (MENVEO)(1 VIAL/2 VIAL)(10-5 5 YRS/2 MOS-55 YRS) MENINGOCOCCAL ACYW OLIGOSACCHARIDE CONJUGATE VACCINE, (PF) IM 01/31/2021 (VARIVAX)(12 MOS UP)VARICELL A VIRUS VACCINE (PF) 0.5 ML, SUB CUT 11/04/2007,10/02/2003 DTaP Vaccine < 7 YO IM VFC 11/04/2007 Dt Dtp Dtap Vaccine 01/17/2004, 3,01/17/2003,10/28 HIB, Unspecified Formulation 10/02/2003,01/18/20 03,2002 Hepatitis B Vaccine 10/02/2003, 3,2002,09/2002,2002 INFLUENZA VACCINE QUADRIVALE NT 3 YR UP PF IM 04/25/2019,05/18/2015 INFLUENZA VACCINE QUADRIVALE NT 6 MOS UP PF IM 03/30/2020 IPV/OPV 01/17/2004,01/17/2003,2002 Influenza Seasonal Unspecifi ed Formulation IM 05/31/2012,04/20/2007,05/05/2006,03/29,04/15/2004,05/11/2003,04/11/20 03 Influenza Vaccine Split 3+ Yrs IM 2015,06/18/2012,04/15/2011,03/29 Influenza Vaccine Split 3+ Y rs PF IM VFC 05/18/2015,04/19/2010,04/20/2009 Meningococcal A Conjugate Va ccine IM VFC 10/10/2014 Pneumococcal 7-valent conjug ate vaccine IM 01/17/2004,03/22/2003,01/17/2003,10/28 Tdap Vaccine > 7 Yo IM VFC 01/08/2016 Family History Medical History Relation Name Comments Healthy Father Blindness Maternal Grandmother Detachment/Tears Maternal Grandmother Diabetes Maternal Grandmother Hypertension Maternal Grandmother Arthritis-rheumatoid Mother Healthy Mother Relation Name Status Comments Father unknown Maternal Grandmother Mother Alive Social History Tobacco Use Types Packs/Day Years Used Date Smoking Tobacco: Never Smokeless Tobacco: Never Tobacco Cessation:Counseling Given: Not Answered Alcohol Use Standard Drinks/Week Comments No 0 (1 standard drink = 0.6 oz pur e alcohol) Feeling Safe Answer Date Recorded Are you in a relationship wi th someone who hurts you emotionally and/or physically? 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 Gender Identity Not on file Sexual Orientation Not on file Last Filed Vital Signs Vital Sign Reading Time Taken Comments Blood Pressure 120/74 01/25/2025 1:18 PM CDT Pulse 86 07/28/2024 5:45 PM REHANGER Temperature 37.1 C (98.8 F) 07/28/2024 5:45 PM REHANGER Respiratory Rate 15 07/28/2024 5:10 PM REHANGER Oxygen Saturation 94% 07/28/2024 5:45 PM REHANGER Inhaled Oxygen Concentration - - Weight 79.4 kg (175 lb) 01/25/2025 1:18 PM CDT Height 188 cm (6' 2 ) 01/16/2025 11:58 AM CDT Body Mass Index 22.47 01/16/2025 11:58 AM CDT Plan of Treatment Upcoming Encounters Date Type Department Care Team (Late st Contact Info) Description 03/28/2025 2:00 PM CDT Office Visit [facility] Neuro[facility] [address] [place] [address] Sumeet Hurtado MD [address] [place] [address] Vaughn England MD [address] [place] [address] 03/31/2025 9:40 AM CDT Office Visit [facility] [address] [place] [address] Allison Brennan PA [address] [place] [address] Health Maintenance Due Date Last Done Comments HPV VACCINES (1 - Male 3-dos e series) 2017 Preventative Visit-Managed Medicaid 2021 12/14/2019 INFLUENZA VACCINE (#1) 2025 0, 04/25/2019, 03/11/2016, Additional history exists DTAP/TDAP/TD VACCINES (7 - T d or Tdap) 01/07/2026 01/08/2016, 11/04/2007, 01/17/2004, Additional history exists HEPATITIS B VACCINES Completed 10/02/2003, 01/17/2003, 2002, Additional history exists Medical Devices Implanted Type Area System Safety Manager Device Identifier Shelf Expiration Date Model / Serial / Lot [place] Suture 2.4mm Cinchloc [id number] - [id number] Implanted:Qty: 1 on 07/27/2023 by Dmitriy Myers III, MD at [facility] [place] Left: Hip [employer] - ENDOSCOPY [id number] 04/12/2024 [id number] / / [id number] Everett Suture 2.4mm Cinchloc [id number] - [id number] Implanted:Qty: 1 on 07/27/2023 by Dmitriy Myers III, MD at [facility] [place] Left: Hip [employer] - ENDOSCOPY [id number] 04/12/2024 [id number] / / [id number] [place] Suture 2.4mm Cinchloc [id number] - [id number] Implanted:Qty: 1 on 07/27/2023 by Dmitriy Myers III, MD at [facility] [place] Left: Hip [employer] - ENDOSCOPY [id number] 04/12/2024 [id number] / / [id number] Everett Suture Pivot Nanotack 1.4mm [id number] - [id number] Implanted:Qty: 1 on 07/27/2023 by Dmitriy Myers III, MD at [facility] [place] Left: Hip [employer]AN - ENDOSCOPY [id number] 02/27/2024 [id number] / / [id number] Everett Suture Tape Xbraid S 2-N 39in Wht/Blck [id number] - [id number] Implanted:Qty: 1 on 07/28/2024 by Dmitriy Myers III, MD at [facility] [place] Right: Hip JONATAN - ENDOSCOPY [id number] 03/28/2029 3910-900- 028 / / [id number] Everett Suture Tape Xbraid S 2-N 39in Wht/Blck [id number] - [id number] Implanted:Qty: 1 on 07/28/2024 by Dmitriy Myers III, MD at [facility] [place] Right: Hip JONATAN - ENDOSCOPY [id number] 03/28/2029 3910-900- 028 / / [id number] Everett Suture 2.4mm Cinchloc [id number] - [id number] Implanted:Qty: 1 on 07/28/2024 by Dmitriy Myers III, MD at [facility] [place] Right: Hip JON[employer] - ENDOSCOPY [id number] 08/18/2025 [id number] / / [id number] Everett Suture 2.4mm Cinchloc [id number] - [id number] Implanted:Qty: 1 on 07/28/2024 by Dmitriy Myers III, MD at [facility] [place] Right: Hip JONATAN - ENDOSCOPY [id number] 08/18/2025 [id number] / / [id number] Everett Suture 2.4mm Cinchloc [id number] - [id number] Implanted:Qty: 1 on 07/28/2024 by Dmitriy Myers III, MD at [facility] [place] Right: Hip JONATAN - ENDOSCOPY [id number] 08/18/2025 [id number] / / [id number] Everett Suture 2.4mm Cinchloc [id number] - [id number] Implanted:Qty: 1 on 07/28/2024 by Dmitriy Myers III, MD at [facility] [place] Right: Hip JONATAN - ENDOSCOPY [id number] 08/18/2025 [id number] / / [id number] Everett Suture Pivot Nanotack 1.4mm [id number] - [id number] Implanted:Qty: 1 on 07/28/2024 by Dmitriy Myers III, MD at [facility] [place] Right: Hip JONATAN - ENDOSCOPY [id number] 02/14/2025 [id number] / / [id number] Procedures Procedure Name Priority Date/Time Associated Diagnosis Comments MRI ARTHROGRAM SHOULDER RIGHT Routine 03/10/2025 9:52 AM CDT Chronic right shoulder pain XR SHOULDER 2+ VW RIGHT Routine 03/10/2025 8:31 AM CDT Chronic right shoulder pain XR FLUORO NEEDLE PLACEMENT Routine 03/10/2025 8:29 AM CDT Chronic right shoulder pain from Last 3 Months Results * MRI ARTHROGRAM SHOULDER RIGHT (03/10/2025 9:52 AM CDT) Anatomical Region Laterality Modality Upper Extremity Magnetic Resonan ce 03/10/2025 9:52 AM CDT Impressions 03/10/2025 10:09 AM CDT IMPRESSION: Please see below. Exam: MRI ARTHROGRAM SHOULDER RIGHT Date/Time of Exam: 03/10/2025 9:52 AM Reason For Exam: Shoulder pain, labral tear suspected, xray done. Diagnosis: Chronic right shoulder pain; Chronic right shoulder pain. Technique: MRI arthrography of the right shoulder was performed after the intra-articular injection of approximately 12 mL of dilute ProHance. Comparison: May 17, 2024. Findings: There is an adequate amount of intra-articular contrast. There is no definite contrast imbibition into the labral substance or chondrolabral junction to suggest the presence of a discrete labral tear. There is no paralabral cyst formation. The glenohumeral ligaments appear intact. The long head biceps tendon is normally positioned within the bicipital groove with an intact-appearing intracapsular segment and labral anchor. The glenohumeral joint is anatomically aligned. There is no significant arthrosis. There are no focal chondral abnormalities or apparent intra-articular debris. The rotator cuff tendons appear intact and within normal limits. There is no significant rotator cuff muscle atrophy or edema. The acromioclavicular joint is anatomically aligned. There is no significant arthrosis. There is no significant subacromial-subdeltoid bursal distention. There is no evidence of an acute osseous abnormality. IMPRESSION: No evidence of internal derangement. Narrative Procedure Note Kurt Chacko MD - 03/10/2025 IMPRESSION: Please see below. Exam: MRI ARTHROGRAM SHOULDER RIGHT Date/Time of Exam: 03/10/2025 9:52 AM Reason For Exam: Shoulder pain, labral tear suspected, xray done. Diagnosis: Chronic right shoulder pain; Chronic right shoulder pain. Technique: MRI arthrography of the right shoulder was performed after the intra-articular injection of approximately 12 mL of dilute ProHance. Comparison: May 17, 2024. Findings: There is an adequate amount of intra-articular contrast. There is no definite contrast imbibition into the labral substance or chondrolabral junction to suggest the presence of a discrete labral tear. There is no paralabral cyst formation. The glenohumeral ligaments appear intact. The long head biceps tendon is normally positioned within the bicipital groove with an intact-appearing intracapsular segment and labral anchor. The glenohumeral joint is anatomically aligned. There is no significant arthrosis. There are no focal chondral abnormalities or apparent intra-articular debris. The rotator cuff tendons appear intact and within normal limits. There is no significant rotator cuff muscle atrophy or edema. The acromioclavicular joint is anatomically aligned. There is no significant arthrosis. There is no significant subacromial-subdeltoid bursal distention. There is no evidence of an acute osseous abnormality. IMPRESSION: No evidence of internal derangement. Allison NAVARRETE MR ORDERABLES Final Result * XR SHOULDER 2+ VW RIGHT (03/10/2025 8:31 AM CDT) Anatomical Region Laterality Modality Upper Extremity Computed Radiogr aphy 03/10/2025 8:32 AM CDT Impressions 03/10/2025 9:01 AM CDT IMPRESSION: Images were submitted confirming intra-articular injection of contrast into the glenohumeral joint. There is no apparent extravasation of contrast material into the subacromial-subdeltoid bursa. Narrative 03/10/2025 9:01 AM CDT Exam: XR SHOULDER 2+ VW RIGHT Date/Time of Exam: 03/10/2025 8:31 AM Reason For Exam: See Diagnosis. Diagnosis: Chronic right shoulder pain; Chronic right shoulder pain. Comparison: None. Procedure Note Kurt Chacko MD - 03/10/2025 Exam: XR SHOULDER 2+ VW RIGHT Date/Time of Exam: 03/10/2025 8:31 AM Reason For Exam: See Diagnosis. Diagnosis: Chronic right shoulder pain; Chronic right shoulder pain. Comparison: None. IMPRESSION: Images were submitted confirming intra-articular injection of contrast into the glenohumeral joint. There is no apparent extravasation of contrast material into the subacromial-subdeltoid bursa. Allison NAVARRETE DIAGNOSTIC IMAGING OR DERABLES Final Result * XR FLUORO NEEDLE PLACEMENT (03/10/2025 8:29 AM CDT) Anatomical Region Laterality Modality Computed Radiogr aphy 03/10/2025 8:31 AM CDT Impressions 03/10/2025 8:59 AM CDT IMPRESSION: Please see below. Exam: XR FLUORO NEEDLE PLACEMENT Date/Time of Exam: 03/10/2025 8:29 AM Reason For Exam: See Diagnosis. This procedure was performed and preliminary findings dictated by JOE Bates. Supervision and final interpretation by Dr. Chacko. CONSENT: Risks, benefits, and alternatives of the procedure were discussed with the patient. Specific risks of conventional/gadolinium arthrogram to include, but not limited to: infection, bleeding, adverse reaction to contrast, synovitis, nerve damage. Procedure may be non-diagnostic at which time it would need to be repeated. Written informed consent was obtained from the patient. Description of Procedure: A time out was performed to verify the patient and procedure. The patient was placed in a supine position with the right upper extremity externally rotated at the side, and fluoroscopy was utilized to select the preferred level and site of injection. The area was marked, prepped, and draped in usual sterile fashion. All elements of maximal sterile barrier technique, including hand hygiene and cutaneous antisepsis with an antisepsis agent, were used. Local anesthesia was achieved with 1% lidocaine overlying the proposed needle course. Under fluoroscopic guidance, a 20-gauge 3.5 inch spinal needle was guided into the glenohumeral joint, and a small test injection of 1% lidocaine was given to note ease of injection. This was followed with the complete bolus of approximately 12 ml of a combination of 5 ml Isovue 300, 0.2 ml ProHance, 5 ml 1% lidocaine, and 10 ml bacteriostatic sodium chloride with good flow of contrast noted into the joint capsule. The needle was withdrawn, the Chlorhexidine cleansed from the skin, and a sterile dressing placed. Routine overhead films were obtained at that time prior to transferring the patient to the MRI department for further imaging studies in stable and comfortable condition, having tolerated the procedure well. Estimated Blood Loss: None Narrative Procedure Note Kurt Chacko MD - 03/10/2025 IMPRESSION: Please see below. Exam: XR FLUORO NEEDLE PLACEMENT Date/Time of Exam: 03/10/2025 8:29 AM Reason For Exam: See Diagnosis. This procedure was performed and preliminary findings dictated by JOE Bates. Supervision and final interpretation by Dr. Chacko. CONSENT: Risks, benefits, and alternatives of the procedure were discussed with the patient. Specific risks of conventional/gadolinium arthrogram to include, but not limited to: infection, bleeding, adverse reaction to contrast, synovitis, nerve damage. Procedure may be non-diagnostic at which time it would need to be repeated. Written informed consent was obtained from the patient. Description of Procedure: A time out was performed to verify the patient and procedure. The patient was placed in a supine position with the right upper extremity externally rotated at the side, and fluoroscopy was utilized to select the preferred level and site of injection. The area was marked, prepped, and draped in usual sterile fashion. All elements of maximal sterile barrier technique, including hand hygiene and cutaneous antisepsis with an antisepsis agent, were used. Local anesthesia was achieved with 1% lidocaine overlying the proposed needle course. Under fluoroscopic guidance, a 20-gauge 3.5 inch spinal needle was guided into the glenohumeral joint, and a small test injection of 1% lidocaine was given to note ease of injection. This was followed with the complete bolus of approximately 12 ml of a combination of 5 ml Isovue 300, 0.2 ml ProHance, 5 ml 1% lidocaine, and 10 ml bacteriostatic sodium chloride with good flow of contrast noted into the joint capsule. The needle was withdrawn, the Chlorhexidine cleansed from the skin, and a sterile dressing placed. Routine overhead films were obtained at that time prior to transferring the patient to the MRI department for further imaging studies in stable and comfortable condition, having tolerated the procedure well. Estimated Blood Loss: None Allison NAVARRETE DIAGNOSTIC IMAGING OR DERABLES Final Result from Last 3 Months Insurance [facility] [id number] Member Subscriber Plan / Payer (Ef fective 2020-Present) Name:Michoacano CarterCassandraalissa Relation to Subscriber:Self Name:Michoacano Carter Payer ID:[id number] (NAIC) Group ID:[id number] Type:HMO Address: [place] [id number] RX INFOCROSSING Medicaid Advance Directives For more information, please contact: [phone] * Full Code (Latest Code Status on File) Date Activated Date Inactivated Comments 07/28/2024 11:22 AM 07/28/2024 8:17 PM * Full Code Date Activated Date Inactivated Comments 07/27/2023 11:20 AM 07/27/2023 8:29 PM Care Teams Medical Logistics Specialist Relationship Specialty Start Date End Date Shaq Marie MD [address] [place] [address] PCP - General Pediatrics 01/29/21
--- NOTE | 2025-03-25 20:47 | XRR_ITS ---
PROCEDURE INFORMATION: Exam: XR Chest Exam date and time: 03/25/2025 8:49 PM Age: 24 years old Clinical indication: Shortness of breath, recently diagnosed with strep, history of asthma; Additional info: SOB TECHNIQUE: Imaging protocol: Radiologic exam of the chest. Views: 1 view. COMPARISON: CR XR chest 1V portable [id number] 02/05/2022 6:38 AM FINDINGS: Lungs: Unremarkable. No consolidation. Pleural spaces: Unremarkable. No pleural effusion. No pneumothorax. Heart/Mediastinum: Unremarkable. No cardiomegaly. Bones/joints: Unremarkable. XR/XR chest 1V portable [id number] IMPRESSION: No acute findings.
[2025-03-25 20:55] VITALS: BP 135/73; PULSE 86; RESP 18; O2SAT 99
--- NOTE | 2025-03-25 21:58 | W.ED.URI ---
HPI - URI/Sore Throat General: Chief Complaint: Upper Respiratory Infection Stated Complaint: diagnosed with strep orly, SOB Time Seen by Provider: 03/25/25 20:45 History of Present Illness: Patient is a 24-year-old male presenting with cough, shortness of breath, and wheezing. Patient has a history of asthma that is typically triggered by weather changes. Usually, saline nasal spray for a couple of days resolves his symptoms. However, the current episode has persisted longer than usual. Patient recently tested positive for strep throat and has been on amoxicillin 875mg for approximately two days with minimal improvement in throat symptoms. Patient reports poor appetite, which is unusual for him. He denies fever and vomiting. Home nebulizer treatments have been administered with only minimal relief of respiratory symptoms. Patient's mother reports that previous exacerbations were typically treated with steroids and antibiotic injections by their previous primary care provider. Related Data Previous Rx's ?Medication ?Instructions ?Recorded amoxicillin 875 mg tablet 875 mg PO BID 10 days #20 tabs 03/23/25 methylprednisolone 4 mg tablets in See Rx Instructions PO .COMPLEX 03/25/25 a dose pack (Medrol (Dawson)) #21 ea Allergies Allergy/AdvReac Type Severity Reaction Status Date / Time milk Allergy ADR-Gastrointestinal Verified 03/25/25 20:46 Upset COUNTS INCLUDE 234 BEDS AT THE [facility] ED PFSH: Medical History Metacarpophalangeal joint pain of left hand Rectal foreign body Left hip pain Surgical History Status post hip surgery left Jun 2023 labral tear repair No significant past surgical history Family History Mother Recurrent partial dislocation of kneecap Social History Smoking and tobacco/nicotine status: never used tobacco/nicotine Alcohol intake: never Substance/Drug Use: never 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 Physical Exam Const: COMMON NORMALS: no acute distress GENERAL APPEARANCE: cooperative; not ill appearing and not frail appearing HENMT: COMMON NORMALS: normocephalic, atraumatic and Normal external nose present HEAD & SCALP: normocephalic and atraumatic FACE & SINUS: normal facial exam and face symmetric NOSE: Normal external nose present Eye: COMMON NORMALS: Equal, round and reactive pupils present and EOMs intact bilaterally PUPIL: Yes Equal, round and reactive pupils present Neck/C-Spine: GENERAL: Yes trachea midline Chest: CHEST: Yes Symmetrical chest wall rise Resp: COMMON NORMALS: normal respiratory effort, No retractions, No use of accessory muscles and clear to auscultation bilaterally AUSCULTATION: clear to auscultation bilaterally Cardio: COMMON NORMALS: regular rate and regular rhythm RATE: regular rate RHYTHM: regular rhythm GI: COMMON NORMALS: Normal to inspection, nondistended, normoactive bowel sounds present Extremity: COMMON NORMALS: no pedal edema Neuro: JOEL COMA SCALE: document GCS findings Joel coma scale eye opening: Spontaneous [place] coma scale verbal response: Orientated [place] coma scale motor response: Obey commands [place] coma scale total score: 15 SENSORY EXAM: Yes extremities (intact) Psych: COMMON NORMALS: speech normal SPEECH: Yes normal speech Skin: COMMON NORMALS: no rashes or lesions noted GENERAL SKIN EXAM: no rashes or lesions noted Course Vital Signs: Vital signs: Vital Signs Temperature 98.5 F 03/25/25 20:42 Pulse Rate 77 03/25/25 22:06 Respiratory Rate 18 03/25/25 20:55 Blood Pressure 113/69 03/25/25 22:06 Pulse Oximetry 99 03/25/25 22:06 Oxygen Delivery Me thod Room Air 03/25/25 20:55 MDM - URI/Sore Throat Medical Decision Making Chest x-ray is negative. He is not wheezing at this time. He is given IM dexamethasone here. He will continue his amoxicillin for strep throat. Tapering dose of steroid. Use of albuterol. Return for worsening symptoms. He is stable for discharge at this time. Lab Data Radiology Impressions Chest X-Ray 03/25/25 20:47 IMPRESSION: No acute findings. XR interpretation done by ED provider, pending radiology final review Discharge Plan Discharge Patient Disposition: Home Clinical Impression: Upper respiratory infection, Pharyngitis Condition: Stable Prescriptions: New methylprednisolone [Medrol (Dawson)] 4 mg tablets,dose pack See Rx Instructions .ROUTE .COMPLEX Qty: 21 0RF Rx Instructions: orally per package directions No Action amoxicillin 875 mg tablet 875 mg PO BID 10 Days Qty: 20 0RF Discharge Orders: Discharge ED (Routine); Ordered 03/25/25 Ordered By: Fernando Mckeon Patient Instructions: Strep Throat (ED), Upper Respiratory Infection (ED), Opioid Safety, Pain Management, Patient Portal & Misti Instructions Activity Restrictions/Additional Instructions: Use your albuterol nebulizer at least 3 times daily for the next 48 hours then as needed. Steroids as directed. Continue your amoxicillin. Return for any worsening symptoms despite treatment. Print Language: Ukrainian Coding Level of Care Code ED Lead Recreation Assistant for [place]
[2025-03-25 22:06] VITALS: BP 113/69; PULSE 77; O2SAT 99
== END 2025-03-25 22:14 | disposition home or self-care (01) ==
PROVIDERS: Emergency Provider Emergency Medicine
DX: J06.9 Acute upper respiratory infection, unspecified (principal); J02.9 Acute pharyngitis, unspecified
CPT/HCPCS: 71045; 96372; 99284; J1100

== ENCOUNTER 2025-04-03 08:02 | Day surgery (SDC) | payer MEDICAID, SELFPAY ==
[2025-04-03] VITALS (11 sets, daily range): BP systolic 117–146; BP diastolic 70–93; PULSE 70–95; RESP 12–19; TEMP 36.4–36.9; O2SAT 96–100; BMI 22.1
[2025-04-03] MEDS: acetaminophen 1,000 MG/100 ML PIGGYBACK 400 MG IV (08:56)
--- NOTE | 2025-04-03 09:31 | ANES.PREANE2 ---
Pre-Anesthetic Assessment Height/Weight: Height 6 ft 2 in Weight 173 lb Temp Pulse Resp BP Pulse Ox O2 Del Method 97.5 F L 88 16 121/86 98 Room Air 04/03/25 08:32 04/03/25 08:32 04/03/25 08:32 04/03/25 08:32 04/03/25 08:32 04/03/25 08:41 Preop Diagnosis: Left ankle intra-articular loose body Operation Date: 04/03/25 10:10 Proposed Procedures p Ankle Arthroscopy Ankle Arthroscopy with Loose Body Removal(Left) - Abundio De Los Santos DPM Was Beta Tomas taken within 24 hours: N/A Was Clonidine taken within 24 hours: N/A Last intake: Intake Last Liquid Date 04/03/25 Last Liquid Time 01:00 Last Solid Date 04/02/25 Last Solid Time 23:30 Social No alcohol and No tobacco Exam alert, oriented x 3, clear to auscultation bilaterally and regular rate & rhythm Airway Submandibular: within normal limits Cervical ROM: within normal limits Mallampati: Class I Dentition: full Anesthetic Plan ASA status: 2 Anesthesia: General Other: No prior issues with anesthesia NPO since yesterday evening History of asthma, occasional inhaler use Patient had strep infection 1-1/2 weeks ago. Completing antibiotics. Currently asymptomatic METs greater than 4 Plan for general anesthesia with peripheral nerve block Medications/Allergies Allergies Allergy/AdvReac Type Severity Reaction Status Date / Time milk Allergy ADR-Gastrointestinal Verified 03/25/25 20:46 Upset Current Medications Generic Name Dose Route Start Last Admin Trade Name Freq PRN Reason Stop Dose Admin Sodium Chloride 1,000 mls @ 30 mls/hr 04/03/25 08:15 04/03/25 09:20 Sodium Chloride 0.9% IV 04/04/25 08:14 30 mls/hr .Q24H GREG Administration PFSH Anesthesia Medical History (Updated 04/02/25 @ 00:00 by LISA Starr) Metacarpophalangeal joint pain of left hand Rectal foreign body Left hip pain Surgical History Status post hip surgery left Jun 2023 labral tear repair No significant past surgical history Family History Mother Recurrent partial dislocation of kneecap Social History Smoking and tobacco/nicotine status: never used tobacco/nicotine Alcohol intake: never Substance/Drug Use: never 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
--- NOTE | 2025-04-03 11:15 | W.PM.OPSFHP ---
Same Day Surgery H&P Indication for Procedure/HPI DATE OF PROCEDURE: April 03, 2025 CHIEF COMPLAINT/INDICATIONFOR SURGICAL PROCEDURE: Left ankle pain PREOP DIAGNOSIS: Left ankle intra-articular loose body PLANNED PROCEDURE: Operation Date: 04/03/25 10:10 Proposed Procedures p Ankle Arthroscopy Ankle Arthroscopy with Loose Body Removal(Left) - Abundio De Los Santos DPM Medications/Allergies* Allergies/Adverse Reactions Allergy/AdvReac Type Severity Reaction Status Date / Time milk Allergy ADR-Gastrointestinal Verified 03/25/25 20:46 Upset Current Medications: Generic Name Dose Route Start Last Admin Trade Name Freq PRN Reason Stop Dose Admin Sodium Chloride 1,000 mls @ 30 mls/hr 04/03/25 08:15 04/03/25 09:20 Sodium Chloride 0.9% IV 04/04/25 08:14 30 mls/hr .Q24H GREG Administration Pertinent History/Comorbid Conditions* Medical History (Updated 04/02/25 @ 00:00 by LISA Starr) Metacarpophalangeal joint pain of left hand Rectal foreign body Left hip pain Surgical History (Updated 11/06/23 @ 16:48 by Domingo Oliver MD) Status post hip surgery left Jun 2023 labral tear repair No significant past surgical history Family History (Updated 07/14/19 @ 16:25 by Jennifer Buck DO) Recurrent partial dislocation of kneecap Mother Social History Smoking and tobacco/nicotine status: never used tobacco/nicotine Alcohol intake: never Substance/Drug Use: never 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 Pertinent Exam Findings alert, oriented x 3, clear to auscultation bilaterally, regular rate & rhythm, operative site marked and procedure specific exam findings BELOW IS A FOCUSED LOWER EXTREMITY EXAM VASCULAR: DP/PT pulses palpable 2/4 with CFT intact, <3 seconds to distal digits. DERMATOLOGICAL: Skin turgor and temperature within normal limits. No open wounds or lesions noted. Nails well-manicured and normotrophic. MUSCULOSKELETAL: Left ankle demonstrates tenderness with deep palpation of posterolateral joint line. Mild pain with inversion at end range of motion. Ankle joint range of motion otherwise within normal limits. Strength testing 5/5 in all quadrants bilaterally. No gross deformity. NEUROLOGICAL: Sensation intact to light touch and monofilament bilaterally. Negative Tinel?s and Valleix?s signs. IMAGING: MRI of the left ankle independently reviewed at today?s visit. Findings demonstrate what appears to be a foreign body within the posterolateral aspect of the ankle joint as well as evidence of a possible old osteochondral defect. Recommendations Surgery/Procedure today Coding Level of Care Code Acute Code for Chg Fwd
--- NOTE | 2025-04-03 11:37 | ANES.PROC ---
Anesthesia Procedures Procedure/Date: 04/03/25 Left popliteal nerve block for postoperative pain control Nerve Block ^: Nerve Block 1: Main Anesthesia: general anesthesia Time Out Performed: Yes Consent: requested by attending/covering physician and from patient Laterality: Left Nerve block location: popliteal Anesthesia monitors applied: pulse oximetry, EKG, BP cuff and oxygen Nerve block position: supine Anesthetic Used: ropivicaine 0.5% Amount of anesthesia used (mL): 25 Ultrasound used to: recognize landmarks Nerve Stimulator Used?: Yes Interscalene/Femoral BLK: other needle (pjunk 4inch) Injection: neg aspiration of heme Patient Tolerated Procedure: well Complications: none Additional Comments: decadron 4mg added to block
[2025-04-03] MEDS: ceFAZolin 2,000 mg SDV 2000 MG IVP (12:10)
--- NOTE | 2025-04-03 12:37 | P.BOP_ITS ---
Date of procedure: 04/03/2025 Surgeon name: Dr. Abundio De Los Santos D.P.M. Circulation Assistant(s) name(s): Benitez Procedure(s) performed: Left ankle arthroscopy Description of findings: Posterolateral ligament protruding into ankle joint Estimated blood loss: 2 cc Tourniquet time: 41-minute Specimen(s) removed: None Post-operative diagnosis: Left ankle intra-articular loose body
--- NOTE | 2025-04-03 12:38 | PM.OP ---
Operative Report Date of procedure: April 03, 2025 Surgeon: Abundio De Los Santos DPM Procedure: Date of procedure: April 03, 2025 Pre-op diagnosis: Intra-articular loose body left ankle Post-op diagnosis: Same Post-op findings: No readily identified intra-articular loose body. Posterolateral ankle joint ligament impingement Procedure done: Left ankle arthroscopy with limited debridement CPT 98256 Implants: None Specimens removed: None Surgeon: Dr. Abundio De Los Santos DPM Pet[employer] Laboratory Technician: Benitez Estimated blood loss: 2cc Tourniquet time: 41 minutes Complications: None Patient is a 24-year-old male that has a history of left ankle pain. The patient has had the aforementioned chief complaint for some time. Conservative treatment measures have been attempted and the patient has opted for surgical intervention at this time. A lengthy discussion regarding the procedure, including risks and complications has been had with the patient and is noted in the recent clinic note. Written and verbal consent have been obtained. All patient questions have been answered to the patient?s satisfaction. No written or verbal guarantees have been given or implied. The patient has been NPO since midnight. The history has been reviewed and the history and physical is current. The signed consent was confirmed and placed in the patient chart. Patient imaging has been reviewed and is consistent with the diagnosis. Under mild sedation, the patient was brought into the operating room and placed on the table in the supine position. IV antibiotics were given by the anesthesia team as preoperative surgical prophylaxis. General sedation was then performed by the anesthesiateam. A pneumatic tourniquet was then placed about the left thigh. Popliteal block was performed by the anesthesia department. the operative extremity was then prepped and draped in the usual fashion. The extremity was then elevated and exsanguinated before the tourniquet was inflated to 325 mmHg. After inflation, the following procedure was then performed. Attention was directed to the left ankle where a #11 blade was used to establish anteromedial portal just medial to the tibialis anterior tendon. Mosquito hemostat was used to bluntly dissect down to level of ankle joint capsule which was pierced in preparation for trocar and cannula. Trocar and cannula were inserted into the ankle joint. Anterolateral portal was then established using a #11 blade. Arthroscopic shaver was inserted into the incision. Mild intra-articular synovitis was noted. This was debrided using a shaver. Ankle joint was noted to be extremely tight. Kerlix was wrapped around in order to distract intraoperatively. Distracting, the posterior aspect of ankle was visualized. No intra-articular loose body was visualized. However posterolaterally there was noted to be impingement of posterior inferior tibiofibular ligament. Significant scar tissue surrounding ligament was visualized. This was debrided with arthroscopic shaver. No further debridement was warranted during the arthroscopic visualization of the ankle joint. No osteochondral defect was noted. Trocar and cannula were removed from the ankle as well as arthroscopic shaver. Portals were closed using 4-0 nylon in horizontal mattress fashion. Tourniquet was let down and good hyperemic response was noted to all digits of the left foot. The patient tolerated the procedure and anesthesia well and without complication. The patient was transported from the operating room to the recovery room with vital signs stable and vascular status intact to all digits of the left foot. The patient was given both written and verbal instructions to remain nonweightbearing to the operative extremity, to keep dressings/splint clean, dry and intact and to take pain medication as directed. The patient will follow-up in the outpatient setting at their scheduled appointment. The patient was discharged with my personal number and was instructed to call if any questions or issues should arise. They were discharged home once anesthesia criteria was met.
--- NOTE | 2025-04-03 13:11 | ANE.PACU2 ---
Inpatient post-anesthesia follow up: Airway intact: Yes Vital signs: Temperature 97.7 F Pulse Rate 74 Respiratory Rate 16 Blood Pressure 130/77 Pulse Oximetry 97 Oxygen Delivery Me thod Room Air Oxygen Flow Rate 10 Fraction of Inspir ed Oxygen Hydration adequate: Yes Nausea and vomiting: No Pain level: 1 Mental status: Baseline
== END 2025-04-03 14:25 | disposition home or self-care (01) ==
PROVIDERS: Visit Provider Podiatrist Foot & Ankle Surgery
PROC: (CPT 29897; principal; 2025-04-03 10:00)
DX: M24.072 Loose body in left ankle (principal); J45.909 Unspecified asthma, uncomplicated
CPT/HCPCS: 29897; J0131; J0690; J1100; J1885; J2250; J2405; J2704; J3010; J7030; J9999

== ENCOUNTER → 2025-05-15 13:21 | Outpatient (BNVA) | payer MEDICAID, SELFPAY | PROVIDERS: Visit Provider Podiatrist Foot & Ankle Surgery | DX: M95.8 Other specified acquired deformities of musculoskeletal system (principal); M25.572 Pain in left ankle and joints of left foot; S93.402A Sprain of unspecified ligament of left ankle, initial encounter; X58.XXXA Exposure to other specified factors, initial encounter | CPT/HCPCS: 73630 ==

== ENCOUNTER → 2025-06-19 18:15 | Outpatient (BNVA) | payer MEDICAID, SELFPAY | PROVIDERS: PCP Family Medicine; Visit Provider Family Medicine | DX: M25.531 Pain in right wrist (principal) | CPT/HCPCS: 73110 ==